=== PATIENT | female | born 1970 | race Caucasian/White ===

== ENCOUNTER 2019-06-18 14:01 | Emergency (ER) | payer OTHER ==
[~2019-06-18] VITALS: Ht 157.5 cm; Wt 49.3 kg
[2019-06-18 14:14] VITALS: BP 99/66
== END 2019-06-18 15:02 | disposition home or self-care (01) ==
LOC: ED 14:50
DX: J01.00 Acute maxillary sinusitis, unspecified (principal); F17.200 Nicotine dependence, unspecified, uncomplicated; Z98.890 Other specified postprocedural states
CPT/HCPCS: 99283

== ENCOUNTER 2019-06-22 11:20 | Emergency (ER) | payer SELFPAY ==
[~2019-06-22] VITALS: Ht 157.5 cm; Wt 49.0 kg
[2019-06-22 11:23] VITALS: BP 100/67
--- NOTE | 2019-06-22 11:35 | NUR ---
md is at the bedside to assess
--- NOTE | 2019-06-22 12:00 | NUR ---
pt to ct w tech
[2019-06-22 12:32] LABS: ALBUMIN 3.8 g/dL (3.4-5.0); ANION GAP 7 mmol/L (5-15); CALCIUM 9.1 mg/dL (8.5-10.1); CHLORIDE 109 mmol/L (98-107); CREATININE 0.92 mg/dL (0.55-1.02)
[2019-06-22 12:35] LABS: BASOPHILS # (AUTO) 0.04 x10^3/uL (0-0.1); BASOPHILS % (AUTO) 1 % (0-1); EOSINOPHILS # (AUTO) 0.72 x10^3/uL (0-0.4); EOSINOPHILS % (AUTO) 12 % (1-7); LYMPHOCYTES # (AUTO) 1.98 x10^3/uL (1-3.4); LYMPHOCYTES % (AUTO) 32 % (22-44); MD NO; MEAN CORPUSCULAR HEMOGLOBIN 31.5 pg (27.0-34.8); MEAN CORPUSCULAR HGB CONC 33.5 g/dL (32.4-35.8); MEAN CORPUSCULAR VOLUME 93.9 fL (80-100); MEAN PLATELET VOLUME 8.6 fL (7.4-10.4); MONOCYTES # (AUTO) 0.52 x10^3/uL (0.2-0.8); MONOCYTES % (AUTO) 8 % (2-9); NEUTROPHILS # (AUTO) 2.98 x10^3/uL (1.8-6.8); NEUTROPHILS % (AUTO) 48 % (42-75); PLATELET COUNT 231 x10^3/uL (130-400); RED BLOOD COUNT 4.93 x10^6/uL (3.82-5.3); RED CELL DISTRIBUTION WIDTH 13.6 % (9.6-15.2)
== END 2019-06-22 14:19 | disposition home or self-care (01) ==
LOC: ED 12:26
DX: J32.0 Chronic maxillary sinusitis (principal); J32.2 Chronic ethmoidal sinusitis; Z98.890 Other specified postprocedural states
CPT/HCPCS: 36415; 70450; 80048; 82040; 85025; 99284

== ENCOUNTER 2020-09-06 15:43 | Emergency (ER) | payer BC, OTHER ==
[~2020-09-06] VITALS: Ht 157.5 cm; Wt 49.7 kg
[2020-09-06 16:04] VITALS: BP 102/74
== END 2020-09-06 17:39 | disposition home or self-care (01) ==
LOC: ED 17:00
DX: K11.21 Acute sialoadenitis (principal); M79.89 Other specified soft tissue disorders; R68.84 Jaw pain
CPT/HCPCS: 99282

== ENCOUNTER 2020-09-24 11:52 | Emergency (ER) | payer BC ==
[~2020-09-24] VITALS: Ht 157.5 cm; Wt 51.1 kg
[2020-09-24 11:56] VITALS: BP 155/90
[2020-09-24] MEDS ORDERED: KETOROLAC 30 MG/1 ML ONE (12:30)
[2020-09-24] MEDS ORDERED: KETOROLAC 30 MG/1 ML IM ONE (12:30)
--- NOTE | 2020-09-24 12:37 | NUR ---
PT BACK FROM XRAY. DIRECTOR GEOTHERMAL OPERATIONS PER JAN. LAB AT BEDSIDE.
--- NOTE | 2020-09-24 13:10 | NUR ---
ALL RESULTS ARE BACK AT THIS TIME. CHART UP FOR RECHECK.
[2020-09-24] MEDS ORDERED: DIPHENHYDRAMINE 25 MG CAPSULE ONE (13:36)
--- NOTE | 2020-09-24 13:38 | NUR ---
PT NOTIFIED THIS RN THAT SHE IS ALLERGIC TO NSAIDS AND HER SKIN IS ITCHY. PT RECEIVED TORODAL PRIOR TO THIS KNOWLEDGE. RECEIVED VERBAL ORDER FOR BENADRYL 25MG PO ONCE. PT EDUCATED TO NOTIFY APPLIQUER ABOUT ALLERGY. PT ARM PLACED IN SPLINT BY STORE RECEIVER.
[2020-09-24] MEDS ORDERED: DIPHENHYDRAMINE 25 MG CAPSULE PO ONE (14:00)
== END 2020-09-24 14:19 | disposition home or self-care (01) ==
LOC: ED 13:08
DX: M77.8 Other enthesopathies, not elsewhere classified (principal); M25.532 Pain in left wrist; M25.522 Pain in left elbow; M79.89 Other specified soft tissue disorders; F17.200 Nicotine dependence, unspecified, uncomplicated
CPT/HCPCS: 29125; 36415; 73080; 73110; 84550; 96372; 99284; J1885; Q0163

== ENCOUNTER 2020-09-28 12:47 | Emergency (ER) | payer BC ==
[~2020-09-28] VITALS: Ht 157.5 cm; Wt 51.8 kg
[2020-09-28 13:15] VITALS: BP 143/86
[2020-09-28 14:07] LABS: BASOPHILS % (AUTO) 1 % (0-1); EOSINOPHILS % (AUTO) 6 % (1-7); LYMPHOCYTES % (AUTO) 32 % (22-44); MEAN CORPUSCULAR HGB CONC 33.1 g/dL (32.4-35.8); MEAN PLATELET VOLUME 7.7 fL (7.4-10.4); MONOCYTES % (AUTO) 7 % (2-9); NEUTROPHILS % (AUTO) 55 % (42-75); PLATELET COUNT 276 x10^3/uL (130-400); RED BLOOD COUNT 4.31 x10^6/uL (3.82-5.3)
[2020-09-28 14:12] LABS: MD NO
[2020-09-28 14:15] LABS: ALANINE AMINOTRANSFERASE 48 U/L (12-78); ALBUMIN 3.8 g/dL (3.4-5.0); ANION GAP 2 mmol/L (5-15); CALCIUM 8.9 mg/dL (8.5-10.1); CHLORIDE 109 mmol/L (98-107); CREATININE 0.97 mg/dL (0.55-1.02)
[2020-09-28 14:18] LABS: ALKALINE PHOSPHATASE 62 U/L (45-117); BILIRUBIN,TOTAL 0.2 mg/dL (0.2-1.0); TOTAL PROTEIN 7.2 g/dL (6.4-8.2)
--- NOTE | 2020-09-28 14:24 | NUR ---
PT IN BED NO DISTRESS, VSS,
== END 2020-09-28 14:50 | disposition home or self-care (01) ==
LOC: ED 14:34
DX: M13.0 Polyarthritis, unspecified (principal); M25.531 Pain in right wrist; M25.532 Pain in left wrist; M25.552 Pain in left hip; R06.02 Shortness of breath; F17.200 Nicotine dependence, unspecified, uncomplicated
CPT/HCPCS: 36415; 80053; 85025; 99283